=== PATIENT | female | born 1975 | race Caucasian/White ===

== ENCOUNTER → 2018-01-09 08:43 | Outpatient (CLI) | payer MEDICAID, SELFPAY ==
--- NOTE | 2018-01-09 08:47 | BI_ITS ---
MAMMOGRAPHY - BILATERAL DIAGNOSTIC REASON FOR EXAM: Female, 42 years old. 2 week history of left breast lump. PERTINENT HISTORY: Non-contributory. TECHNIQUE: Digital bilateral breast linh (3D mammographic acquisition) in the CC and MLO projections. 2-D mediolateral oblique (MLO) and craniocaudad (CC) views of both breasts were obtained. CAD: Full Field Digital Mammography with Computer Added Detection was performed. COMPARISON: Comparison is made with prior study dated April 17, 2013. FINDINGS: Breast Composition: There are scattered areas of fibroglandular density. There are no dominant masses or suspicious calcifications. No other significant abnormalities are identified. There has been no significant change since the prior study. BI/DIAG MAMM W/CAD, BILAT IMPRESSION: Stable bilateral diagnostic mammogram. With the patient's history of a palpable abnormality in the superior retroareolar region of the left breast, correlation with ultrasound is recommended. ASSESSMENT CATEGORY: BIRADS Category 0: Incomplete. Need additional imaging evaluation. A letter regarding these results will be sent to the patient by the facility within 30 days. Approximately 10% of breast cancers are not detected by mammography. A normal mammogram should not delay biopsy of a clinically suspicious abnormality. Electronically Signed: Nba Christianson MD at 10:44 EST Tel [phone], Service support ,
--- NOTE | 2018-01-09 08:47 | US_ITS ---
STUDY: ULTRASOUND BREAST - LEFT REASON FOR EXAM: Female, 42 years old. Palpable lump left breast. TECHNIQUE: Axial and longitudinal images of the LEFT breast were performed with a high resolution ultrasound transducer. COMPARISON: Comparison is made with prior mammogram done earlier in the day. FINDINGS: LEFT Breast: There is a 6 mm x 6 mm x 6 mm slightly echogenic nodule with a central cystic component at the 11:00 position breast at 3 cm from nipple. This corresponds to the palpable abnormality. This is deep to the subcutaneous tissue. This may represent a sebaceous cyst. A repeat sonogram in 3 months is recommended. US/Breast Limited Unilateral IMPRESSION: The palpable amount to correspond to a 6 mm x 6 mm x 6 mm slightly echogenic nodule with a central cystic component. This is superficial in nature. A repeat sonogram in 3 months is recommended for further evaluation. ASSESSMENT CATEGORY: BIRADS Category 3: Probably Benign - Short-Interval Follow-up Suggested. A letter regarding these results will be sent to the patient by the facility within 30 days. Electronically Signed: Nba Christianson MD at 10:51 EST Tel [phone], Service support ,
== END ==
PROVIDERS: Family Provider Family Medicine; PCP Family Medicine; Referring Provider Registered Nurse; Visit Provider Registered Nurse
DX: N63.20 Unspecified lump in the left breast, unspecified quadrant (principal)
CPT/HCPCS: 76642; 77062; 77066; G0279

== ENCOUNTER → 2018-05-09 08:56 | Outpatient (CLI) | payer MEDICAID, SELFPAY ==
--- NOTE | 2018-05-09 10:44 | US_ITS ---
STUDY: ULTRASOUND BREAST - LEFT REASON FOR EXAM: Female, 42 years old. 3 month follow-up examination for left breast lump. TECHNIQUE: Axial and longitudinal images of the LEFT breast were performed with a high resolution ultrasound transducer. COMPARISON: Comparison is made with prior sonogram dated January 09, 2018. FINDINGS: LEFT Breast: There is a 5 mm x 6 mm x 5 mm hypoechoic nodule with a central cystic center at the 11:00 position in the breast at 3 sinus on the nipple. This is unchanged. I recommend tissue diagnosis at this time. US/Breast Limited Unilateral IMPRESSION: Stable examination. Tissue diagnosis is recommended for further evaluation. ASSESSMENT CATEGORY: BIRADS Category 4: Suspicious - Biopsy Should Be Considered. A letter regarding these results will be sent to the patient by the facility within 30 days. Electronically Signed: Nba Christianson, at 11:53 EST , Service support ,
== END ==
PROVIDERS: Family Provider Family Medicine; PCP Family Medicine; Referring Provider Registered Nurse; Visit Provider Registered Nurse
DX: N60.02 Solitary cyst of left breast (principal)
CPT/HCPCS: 76642

== ENCOUNTER → 2018-05-12 11:34 | Outpatient (CLI) | payer MEDICAID, SELFPAY ==
--- NOTE | 2018-05-11 | ASPS_PTH ---
PATIENT: JACKI BALTAZAR LOC: [facility] U#:[id number] AGE/SX: 49/F ROOM: RE05/12/[address]: Dr. Tino Valencia MD : 1975 BED: DIS: SPEC #: [id number] RECD: 05/12/18 11:07 STATUS: JULIO NEWBYRonny #: [id number] AIME: 05/11/18 00:[address]: Tino Valencia DEPT: CYTOLOGY RECD BY: Erich Armijo ENTERED: 05/12/18 13:38 SP TYPE: ASPIRATION OTHR DR: Dr. Santo Laughlin MD Tissues: Left breast, NOS Procedures: Special Stain Group II Cytology Other HEADER OPERATION: Left breast biopsy PRE-OP DIAGNOSIS: Abnormal mammogram/ultrasound TISSUE SUBMITTED: Left breast aspirate 4 slides DIAGNOSIS CYTOLOGY Fine needle aspiration, left breast (smears): Atypical ductal cells present. See comment. AM:kavita 05/15/18 COMMENT A biopsy is recommended if clinically indicated. Clinical correlation is necessary. This case was reviewed and diagnosis discussed with Dr. Valencia on 05/18/18 at 9:15 a.m. CYTOLOGY STUDY Slides are reviewed. CYTOLOGY GROSS Received are four smears labeled with the patient's name and designated per the requisition as left breast. Submitted for staining. / 05/12/18 TC:? CPT: 01223
== END ==
PROVIDERS: Family Provider Family Medicine; PCP Family Medicine; Referring Provider Surgery; Visit Provider Surgery
DX: R92.8 Other abnormal and inconclusive findings on diagnostic imaging of breast (principal)
CPT/HCPCS: 88161; 88313

== ENCOUNTER 2018-05-29 07:47 | Day surgery (SDC) | payer MEDICAID, SELFPAY ==
--- NOTE | 2018-05-18 20:26 | PCM.HP.BLA ---
History and Physical Date of Admission: 05/29/18 HISTORY AND PHYSICAL - BREAST COMPLAINT ? Marbella Julian 1975 ? ? REFERRING PHYSICIAN: ??Santo Laughlin, * ? CHIEF COMPLAINT: ??Abnormal left breast imaging ? HPI: The patient is a 42 year old female with a complaint of a palpable breast mass. ??The patient notes a mass in the 11 o'clock of her left?breast. ??The patient has noticed this mass for 6 ?months. ?The patient had a mammogram and ultrasound on January 09, 2018 with follow-up ultrasound on May 09, 2018 which demonstrated: ? ? LEFT Breast: There is a 5 mm x 6 mm x 5 mm hypoechoic nodule with a central cystic center at the 11:00 position in the breast at 3 sinus on the nipple. ?This is unchanged. ?I recommend tissue diagnosis at this time. ? She does ?perform a self breast exam routinely. ?She notes no skin changes. ?She denies nipple discharge. ?She notes no axillary masses. ?She notes no family history of breast problems. ?She notes no significant breast trauma or breast difficulties in the past. ? The patient has had 3 pregnancies. ??Her last mammogram was 2017. ?Her last menstrual period was April,. ?Her first menstrual period was at age 11. ? The patient is being seen by me today at the request of Dr. Santo Laughlin MD for my opinion and advice regarding left breast palpable mass. ? I performed ultrasound-guided aspiration of what was felt to be a thicker cyst on her initial visit on May 11, 2018. ?Cytology returned as atypical cells. ? PAST?MEDICAL?HISTORY PAST MEDICAL HISTORY Diagnosis Date ? Depression ? ? Headache ? ? ? PAST?SURGICAL?HISTORY PAST SURGICAL HISTORY Procedure Laterality Date ? DELIVERY ONLY ? ? ? x3 ? LAP CHOLECYSTECT/CHOLANGIOGRAPHY ? 05-19-2009 ? PAST SURGICAL HISTORY OF ? -2009 ? ?root canal with abscess ? TONSILLECTOMY HX ? CURRENT?MEDICATIONS ? Current Outpatient Medications: alpha tocopheryl acetate (VITAMIN E) 100 unit capsule Take 100 Units by mouth once daily. Disp: Rfl: PARoxetine (PAXIL) 30 mg tablet Take 30 mg by mouth once daily. Disp: Rfl: sertraline (ZOLOFT) 100 mg ORAL tablet Take 1 tablet by mouth once daily. Disp: Rfl: 0 sertraline (ZOLOFT) 50 mg ORAL tablet Take 1 tablet by mouth once daily. Disp: Rfl: 0 esomeprazole (NEXIUM) 40 mg ORAL capsule Take 1 capsule by mouth once daily. Disp: Rfl: 0 Ferrous Sulfate 325 mg (65 mg iron) ORAL tablet Take 1 tablet by mouth twice daily. Disp: Rfl: 0 ? No current facility-administered medications for this visit.? ? ALLERGIES:?Amoxicillin; Food Extracts; Ibuprofen; Latex ? PERSONAL HISTORY:? SOCIAL?HISTORY Social History ??Socioeconomic History ?Marital status: ?Spouse name: Not on file ?Number of children: Not on file ?Years of education: Not on file ?Highest education level: Not on file ??Social Needs ?Financial resource strain: Not on file ?Food insecurity - worry: Not on file ?Food insecurity - inability: Not on file ?Transportation needs - medical: Not on file ?Transportation needs - non-medical: Not on file ??Occupational History ?Not on file ??Tobacco Use ?Smoking status: Never Smoker ??Substance and Sexual Activity ?Alcohol use: No ?Drug use: No ?Sexual activity: Not on file ??Other Topics ?Concerns: ?Not on file ??Social History Narrative ?Not on file ? FAMILY HISTORY:? FAMILY?HISTORY FAMILY HISTORY Problem Relation Age of Onset ? No Known Problems Mother ? ? No Known Problems Father ? ? REVIEW OF SYMPTOMS: ??The review of systems data was entered by the nurse and reviewed by me ? Nursing Notes: Nancy Burch LPN ?05/18/2018 ?8:02 AM ?Signed REVIEW OF SYSTEMS: ?General:???The patient denies fatigue, denies weight loss, denies weight gain, denies feeling hot, and denies feelings of cold. ?Eyes: ?The patient denies glaucoma, denies eye injury/surgery, does not wear glasses or contacts. ?Ear/Nose/Throat: ?The patient denies allergies, denies hayfever, denies ear infections, and denies bloody noses. ?Cardiovascular: ?The patient denies chest pain, denies heart disease, denies high blood pressure,denies cardiac stent, denies prior heart attack, denies irregular heart beat, denies high cholesterol, ?denies poor circulation, denies heart failure, other cardiac issues, denies claudication, denies cold feet, denies peripheral arterial stent. ?Respiratory: ?The patient denies tuberculosis, denies pneumonia, denies frequent cough, denies pulmonary embolism, denies shortness of breath, and denies coughing up blood. ?Gastrointestinal: ?The patient denies difficulty swallowing, denies acid reflux, denies ulcers, denies vomiting, denies jaundice/hepatitis, denies gallbladder problems, denies black or tarry stools, denies hemorrhoids, denies bleeding from rectum, denies diverticulitis, denies constipation, denies diarrhea, denies loss of stool control, and denies hernias. ?Kidney/Bladder: ?The patient denies kidney stones, denies urine infections, and denies bloody urine. ?Skin: ?The patient denies a history of skin cancer, denies bleeding/changing moles, and denies a history of skin rash. ?Neurologic: ?The patient denies a history of epilepsy/convulsions, NOTES headaches, denies head/spinal injuries, and denies stroke/TIA. ?Psychiatric: ?The patient denies psychiatric medications, denies depression, and denies voices, denies substance abuse. ?Endocrine: ?The patient denies thyroid disorders, denies diabetes, and denies hormonal problems. ?Hematologic: ?The patient denies a history of bruising, denies bleeding, and denies anemia, denies blood clots. ?Infections: ?The patient denies a history of measles and mumps, denies rheumatic fever, and denies sexually transmitted diseases. ?Musculoskeletal: ?The patient denies back pain/injury, denies back problems, denies sciatica, denies knee/foot trouble, denies arthritis, or denies gout. ? ? When was patient's last Mammogram screening? 01/2018 ? ?Last Colonoscopy: ?None ? Nancy Burch LPN ? ? ? PHYSICAL EXAMINATION: ? General: ?The patient is 42 year old female, well nourished, well hydrated in no acute distress. ?The patient is oriented to time, place, and person. ? VITALS:?Blood pressure 148/62, pulse 80, height 172.7 cm (5' 8), weight 109.8 kg (242 lb).?Body mass index is 36.8 kg/m?.? ? HEENT: ?Normal cephalic, ataumatic, pupils are equally round, sclera are anicteric, mucous membranes are moist, oropharynx is clear. ?Neck has no masses, asymmetry or lymphadenopathy. ?Thyroid is unremarkable. ? Respiratory: ?Clear to auscultation and percussion. ?Normal respiratory excursion and pattern. ? Cardiac: ?Examination is regular rate and rhythm. ? Abdominal exam: ?Soft, nontender, ?with no palpable masses. ?No hepatosplenomegaly. ?No palpable hernias. ? Rectal exam: ?exam deferred Extremities: ?no clubbing, cyanosis or edema. ?No adenopathy. ? Breast: ?Visual inspection reveals no retractions, nipple inversion, or skin changes. ?Palpation of the right breast reveals no dominant or suspicious masses, but multiple benign-feeling nodules. ?Palpation of the left breast reveals no dominant or suspicious masses, but multiple benign-feeling nodules and the mass of concern at the 11 oclock position 3 cm from the nipple. ?The mass is not fix the skin is proximally pea-sized and mobile. ?Axillary exam demonstrates no suspicious masses in either the left or right axilla. ?There is no nipple discharge expressed from either the left or right breast. ? LABORATORY VALUES: As Noted ? RADIOLOGIC STUDIES: ?As Noted ? PROCEDURE:? ? Assessment ? IMPRESSION: Left breast abnormality-likely cyst?- typical cells ? PLAN: ?I plan to perform a ultrasound guided needle localization excisional breast biopsy. ?The planned surgical procedure was discussed extensively with the patient. The risks, benefits and anticipated outcomes of the procedure, the risks and benefits of the alternatives to the procedure, and the roles and tasks of the personnel to be involved, were discussed with the patient. ?My staff has also explained the procedure in understandable terms and the patient was given the option to take printed material concerning the planned procedure. ?The patient had the opportunity to ask questions concerning the planned procedure. ?The patient freely consents to the planned procedure. ? Anticipated Surgical Procedure/ CPT Code:?left?preoperative stereotactic guided needle placement - 56037, preoperative ultrasound guided needle placement -76732?EXCISIONAL BREAST BIOPSY - 65920-025 ? Anticipated Anesthetic:?MAC with local ? Patient weight:??Blood pressure 148/62, pulse 80, height 172.7 cm (5' 8), weight 109.8 kg (242 lb).?BMI: ?Body mass index is 36.8 kg/m?. ? Planned antibiotic:?clindamycin 900mg IVPB wafer fabrication technician to OR ? SCDs needed -?Yes ? Inspector Weights And Measures Needed -?Yes ? Diagnoses:?(N63.0) Lump or mass in breast ?(primary encounter diagnosis) ? A letter was sent to Dr. Santo Laughlni MD indicating the above finding for this patient. ? Return to Clinic: The patient is instructed to follow-up with me in one week. ? Tino Valencia MD
--- NOTE | 2018-05-29 | IMM_PTH ---
PATIENT: JACKI BALTAZAR [place] [facility] [id number] AGE/SX: 42/F ROOM: RE05/29/[address]: Dr. Tino Valencia MD : 1975 BED: DIS: 05/29/2018 SPEC #: [id number] RECD: 05/31/18 14:01 STATUS: JULIO REQ #: [id number] AIME: 05/29/18 00:[address]: Tino Valencia DEPT: IMMUNOHISTOCHEMISTRY RECD BY: Tiny Luna ENTERED: 05/31/18 14:02 SP TYPE: IMMUNO OTHR DR: Dr. Santo Laughlin MD Tissues: Left breast, NOS Procedures: SMA (add) CD45 (add) STELLA (add) KI-67 (add) MACRO (add) P53 (add) Vimentin (add) Pankeratin (initial) GATA3 (add) PHYSICIAN & INSTITUTION [place] [id number] SPECIMEN INFORMATION: Tissue Source: Left breast biopsy Clinical Info: Mass left breast Specimen Number: [id number] #4 CPT code: 99962, 46367 x8 METHODOLOGY: Deparaffinized sections of prefer/formalin-fixed tissue or PAP/DQ stained slides are incubated with monoclonal/polyclonal antibodies/oligonucleotide probes. Localization is made via biotin free immunoperoxidase method. Appropriate controls are performed and reacted as expected. Results on target cell population are indicated in the following table: RESULTS: ANTIBODY / CLONE RESULT Block 4 GATA3 (L50-823) negative AE1-3 (AE1/AE3/PCK26) negative CD45 (RP2/18) positive Actin (1A4) negative Vimentin (V9) positive Macro (HAM-56) positive Ki-67 (30-9) positive, low STELLA (E29) negative P53 (DO-7) negative These tests were developed and their performance characteristics determined by [facility]. They may not have been cleared or approved by the U.S. Food and Drug Administration. The FDA has determined that such clearance or approval is not necessary. INTERPRETATION: Left breast biopsy: Benign breast tissue. AM:kavita 06/01/18
[2018-05-29 08:30] VITALS: BP 152/92; PULSE 88; RESP 18; TEMP 36.9; O2SAT 99; BMI 36.8
--- NOTE | 2018-05-29 09:15 | BRBX_PTH ---
PATIENT: JACK[place] BAL[place]ZAR [place] [facility] [place][id number] AGE/SX: 42/F ROOM: RE05/29/[address]: Dr. Tino Valencia MD : 1975 BED: DIS: 05/29/2018 SPEC #: [id number] RECD: 05/29/18 10:25 STATUS: JULIO TENA #: [id number] AIME: 05/29/18 09:[address]: Tino Valencia DEPT: SURGICAL PATHOLOGY RECD BY: Erich Armijo ENTERED: 05/29/18 13:08 SP TYPE: BREAST BX OTHR DR: Dr. Santo Laughlin MD Tissues: Left breast, NOS Procedures: Surgery Specimen Level V HEADER OPERATION: Left breast excisional biopsy, ultrasound-guided needle localization PRE-OP DIAGNOSIS: Lump of mass in breast TISSUE SUBMITTED: Left breast biopsy, wire - medial, suture - cranial, skin superficial MICROSCOPIC DIAGNOSIS Left breast mass, lumpectomy: Fat necrosis with associated benign fibrocollagenous nodule, inflamed. Minimal fibrocystic change and focal intraductal hyperplasia without atypia. No evidence of malignancy. Skin with no significant pathologic change. See comment. AM:kavita 06/01/18 COMMENT Immunohistochemistry ([id number]) supports the above diagnosis. Case has been reviewed in consultation with Dr. Garcia who concurs with the above diagnosis. IDC:SJ MICROSCOPIC DESCRIPTION Slides are reviewed. GROSS DESCRIPTION Received fresh and then postfixed in formalin is one container labeled with the patient's name and designated left breast biopsy. The specimen consists of a piece of fibroadipose tissue with needle localization measuring 3 x 2 x 1.5 cm. Skin is noted anteriorly measuring 1.5 x 0.5 cm. The specimen is oriented as follows: wire- medial, suture - cranial, skin superficial. The specimen is inked as follows: anterior - yellow, posterior - black, superior - blue, inferior - green, medial - red and lateral - orange. OR consult was canceled after discussion with surgeon. Serial sections reveal a round, light singleton-yellow nodule measuring 0.5 x 0.3 x 0.5 cm. This nodule is 0.2 cm away from anterior and posterior margin. The entire specimen is submitted in five cassettes from lateral to medial margin. / NEVAEH:kavita 05/30/18 TC:3 CPT: 66701
[2018-05-29] MEDS: Bupivacaine Mpf 0.5% 30 ML VIAL (10:22)
--- NOTE | 2018-05-29 10:32 | OP.PCM_ITS ---
Report of Operation Date of Procedure: 05/29/18 Pre-Operative Diagnosis: left breast mass Post-Operative Diagnosis: left breast mass Surgery/Procedure Performed:: left ultrasound guided wire localization excisional breast biopsy health sciences program coordinator: None Type of Anesthesia:: General Anesthesiologist: Trung Estevez - ASA2 Specimen's removed: left breast Estimated Blood Loss (mL): 30 Fluids Replaced: 600 Description of Procedure: The patient was then brought to the operative suite. Sign was performed verifying patient, site, position, SCIP antibiotic prophylaxis-2 g of Ancef and DVT prophylaxis with SCDs. Following an LMA anesthesia, the patient?s right breast, the patient?s right/left breast, were prepped and draped in the usual fashion. Timeout was performed verifying patient, site, position. Ultrasound guidance was used to place a 7 Kopan?s wire into the abnormality located in the left breast at the 11:00 position 3 cm from the nipple. The wire entered the breast from the medial aspect traveling laterally. An elliptical incision was made and dissection carried down to subcutaneous breast tissue and then flared out such that a good margin would be obtained in all axes. When the specimen was removed, The wire came from the medial margin. A solitary suture was placed at the cranial site and the skin was superficial. Subcutaneous breast tissue closed with interrupted 3-0 Vicryl suture. Skin was closed with a running 4-0 Biosyn subcuticular suture. Specimen radiograph demonstrated good position of the clip relative to the biopsy site. The specimen was then brought to the pathology department. I oriented the specimen with the pathologist. Gross margins were examined and felt to be at least 1 cm. Given this, Dermabond was applied to the skin the patient was awakened and brought to recovery in stable condition.
--- NOTE | 2018-05-29 10:33 | DCINST_ITS ---
Discharge Diet: No Restrictions Discharge Activity: Return to Normal Activity May shower in (days): 3 Remove Dressing in (days):: 3 - Leave Dermabond in place. Cleanse incision/area with: Soap & Water Additional Dressing/Incision Instructions:: leave dermabond intact Allergies/Adverse Reactions: Allergies ibuprofen Allergy (Verified 05/23/18 15:17) Hives amoxicillin Adverse Reaction (Verified 05/23/18 15:17) Upset Stomach latex Adverse Reaction (Verified 05/23/18 15:17) IRRITATION Medications to take at Discharge Paroxetine HCl [Paxil] 30 mg PO DAILY 05/23/18 Vitamin E 400 unit PO DAILY 05/23/18 Primary Care Physician: Santo Laughlin MD [Primary Care Provider] - Test Results: Test results from this visit will be discussed in further detail at your follow- up appointment, if applicable. Please Follow Up With: Tino Valencia MD - [phone] When: Please call for an appointment to be seen in one week.
[2018-05-29 10:37] VITALS: BP 117/77; BP 152/92; PULSE 76; RESP 20; TEMP 36.1; O2SAT 97
[2018-05-29 10:45] VITALS: BP 110/74; BP 152/92; PULSE 76; RESP 18; O2SAT 99
[2018-05-29 11:01] VITALS: BP 144/97; BP 152/92; PULSE 90; RESP 18; TEMP 36.4; O2SAT 99
[2018-05-29 11:05] VITALS: BP 152/92
[2018-05-29 11:35] VITALS: BP 152/92
== END 2018-05-29 11:39 | disposition home or self-care (01) ==
LOC: SDC 07:47 → AC 07:48
PROVIDERS: Family Provider Family Medicine; PCP Family Medicine; Referring Provider Surgery; Visit Provider Surgery
PROC: (CPT 19120; principal; 2018-05-29 09:00)
DX: N63.21 Unspecified lump in the left breast, upper outer quadrant (principal); E78.00 Pure hypercholesterolemia, unspecified; F32.9 Major depressive disorder, single episode, unspecified; F41.9 Anxiety disorder, unspecified; F17.200 Nicotine dependence, unspecified, uncomplicated; Z79.899 Other long term (current) drug therapy
CPT/HCPCS: 19125; 88305; 88307; 88341; 88342; J7120; J2405